=== PATIENT | female | born 1975 | race Caucasian/White ===

== ENCOUNTER 2016-06-23 13:43 | Emergency (ER) | payer MEDICAID, OTHER ==
[~2016-06-23] VITALS: Ht 170.2 cm; Wt 128.0 kg
[~2016-06-23 13:43] MED LIST: CEPH-368 PO; CLIN300C93 PO; CLON0.5T PO; GABA100C PO; IBUP-1222 PO; LAMO200T3 PO; LORA1TAB PO; MELO-184 PO; MIRT15TA PO; OXYC-223 PO; SERT100T PO
[2016-06-23 13:48] VITALS: BP 110/64
[2016-06-23] MEDS ORDERED: KETOROLAC 30 MG/1 ML ONE (14:07)
[2016-06-23] MEDS ORDERED: KETOROLAC 30 MG/1 ML IM ONE (14:30)
== END 2016-06-23 15:19 | disposition home or self-care (01) ==
LOC: ED 15:00
DX: S52.522A Torus fracture of lower end of left radius, initial encounter for closed fracture (principal); F31.9 Bipolar disorder, unspecified; E66.9 Obesity, unspecified; W06.XXXA Fall from bed, initial encounter; Y93.89 Activity, other specified; Y92.009 Unspecified place in unspecified non-institutional (private) residence as the place of occurrence of the external cause; Y99.8 Other external cause status
CPT/HCPCS: 29125; 73110; 73130; 96372; 99284; J1885

== ENCOUNTER 2016-06-27 11:09 | Emergency (ER) | payer MEDICAID ==
[~2016-06-27] VITALS: Ht 167.6 cm; Wt 105.9 kg
[2016-06-27 11:17] VITALS: BP 127/88
== END 2016-06-27 12:41 | disposition home or self-care (01) ==
LOC: ED 12:34
DX: R52 Pain, unspecified (principal); Z76.0 Encounter for issue of repeat prescription; F31.9 Bipolar disorder, unspecified
CPT/HCPCS: 99283

== ENCOUNTER 2017-01-02 09:14 | Emergency (ER) | payer MEDICAID ==
[~2017-01-02] VITALS: Ht 167.6 cm; Wt 84.0 kg
[~2017-01-02 09:14] MED LIST changes: +CLIN300C8 PO; -CLIN300C93 PO; -MELO-184 PO; +MELO15TA24 PO; -OXYC-223 PO; +OXYC-306 PO
[2017-01-02 09:16] VITALS: BP 100/66
[2017-01-02] MEDS ORDERED: FLUORESCEIN OPHTHALMIC 1 MG STRIP ONE (09:23)
[2017-01-02] MEDS ORDERED: PROPARACAINE OPHTH 0.5%, 15ML ONE (09:24)
[2017-01-02 10:09] LABS: HEMOGLOBIN 12.1 g/dL (11.7-16.4); WHITE BLOOD COUNT 7.5 x10^3/uL (3.4-10)
[2017-01-02 10:20] LABS: BLOOD UREA NITROGEN 8 mg/dL (7-18)
[2017-01-02 10:32] LABS: ASPARTATE AMINO TRANSFERASE 20 U/L (15-37)
== END 2017-01-02 11:11 | disposition home or self-care (01) ==
LOC: ED 10:55
DX: H10.021 Other mucopurulent conjunctivitis, right eye (principal); H10.022 Other mucopurulent conjunctivitis, left eye; L21.9 Seborrheic dermatitis, unspecified
CPT/HCPCS: 36415; 80053; 84439; 84443; 85025; 99284

== ENCOUNTER 2017-01-21 15:27 | Emergency (ER) | payer MEDICAID ==
[~2017-01-21] VITALS: Ht 167.6 cm; Wt 81.1 kg
[2017-01-21 15:31] VITALS: BP 132/86
[2017-01-21] MEDS ORDERED: AMPH20TA2 PO (16:41)
[2017-01-21] MEDS ORDERED: BUSP5TAB2 PO (16:41)
[2017-01-21 16:48] LABS: HEMATOCRIT 37.7 % (34.6-47.8); HEMOGLOBIN 12.5 g/dL (11.7-16.4); WHITE BLOOD COUNT 7.1 x10^3/uL (3.4-10)
[2017-01-21 16:57] LABS: BLOOD UREA NITROGEN 12 mg/dL (7-18)
[2017-01-21 17:02] LABS: IS PT STATUS REG ER OR PRE ER? YES
[2017-01-21 17:09] LABS: DAU SCREEN DISCLAIMER
== END 2017-01-21 18:35 | disposition home or self-care (01) ==
LOC: ED 16:45
DX: L01.01 Non-bullous impetigo (principal); R05 Cough; F31.9 Bipolar disorder, unspecified; Z90.49 Acquired absence of other specified parts of digestive tract
CPT/HCPCS: 36415; 71010; 80048; 80307; 82040; 84484; 84703; 85025; 93005; 99285; G0479

== ENCOUNTER 2017-02-17 16:56 | Emergency (ER) | payer MEDICAID ==
[~2017-02-17] VITALS: Ht 170.2 cm; Wt 81.6 kg
[~2017-02-17 16:56] MED LIST changes: +AMPH20TA2 PO; +BUSP5TAB2 PO
[2017-02-17 16:57] VITALS: BP 144/82
== END 2017-02-17 17:26 | disposition home or self-care (01) ==
LOC: ED 17:00
DX: B80 Enterobiasis (principal); F90.9 Attention-deficit hyperactivity disorder, unspecified type; E66.9 Obesity, unspecified; Z88.0 Allergy status to penicillin; Z90.49 Acquired absence of other specified parts of digestive tract
CPT/HCPCS: 99283

== ENCOUNTER 2017-02-21 21:04 | Emergency (ER) | payer MEDICAID ==
[~2017-02-21] VITALS: Ht 167.6 cm; Wt 81.6 kg
[2017-02-21 21:17] VITALS: BP 129/80
[2017-02-21] MEDS ORDERED: FLUORESCEIN OPHTHALMIC 1 MG STRIP ONE (21:42)
[2017-02-21] MEDS ORDERED: PROPARACAINE OPHTH 0.5%, 15ML ONE (21:42)
== END 2017-02-21 22:27 | disposition home or self-care (01) ==
LOC: ED 22:01
DX: S05.02XA Injury of conjunctiva and corneal abrasion without foreign body, left eye, initial encounter (principal); B80 Enterobiasis; F31.9 Bipolar disorder, unspecified; X58.XXXA Exposure to other specified factors, initial encounter; Y93.89 Activity, other specified; Y92.89 Other specified places as the place of occurrence of the external cause; Y99.8 Other external cause status
CPT/HCPCS: 99283